=== PATIENT | male | born 1955 | race Two or more races ===

== ENCOUNTER 2016-12-24 16:04 | Emergency (ER) | payer OTHER ==
[~2016-12-24] VITALS: Ht 172.7 cm; Wt 74.8 kg
--- NOTE | 2016-12-24 16:08 | NUR ---
Dr Aguirre at the bedside for eval and exam.
[2016-12-24] MEDS ORDERED: LORA1TAB PO (16:40)
[2016-12-24] MEDS ORDERED: MAGN400O6 PO (16:40)
[2016-12-24] MEDS ORDERED: QUET25TA PO ×2 (16:40)
[2016-12-24] MEDS ORDERED: DEXT-150 PO (16:40)
[2016-12-24] MEDS ORDERED: METF500T4 PO (16:40)
[2016-12-24] MEDS ORDERED: BLOO-360 IN (16:40)
[2016-12-24] MEDS ORDERED: GLIM2TAB2 PO (16:40)
[2016-12-24] MEDS ORDERED: MAG30ORA PO (16:40)
[2016-12-24] MEDS ORDERED: CYAN100T3 PO (16:40)
[2016-12-24] MEDS ORDERED: INSU100V28 SQ (16:40)
[2016-12-24] MEDS ORDERED: BENA10TA2 PO (16:40)
[2016-12-24] MEDS ORDERED: CLOP75TA15 PO (16:40)
[2016-12-24] MEDS ORDERED: TEMA15CA PO (16:40)
[2016-12-24] MEDS ORDERED: ATOR20TA PO (16:40)
[2016-12-24] MEDS ORDERED: THIA100T13 PO (16:40)
[2016-12-24] MEDS ORDERED: ACET325T53 PO (16:40)
[2016-12-24] MEDS ORDERED: GLUC1KIT IJ (16:40)
[2016-12-24] MEDS ORDERED: CHOL400C8 PO (16:40)
[2016-12-24] MEDS ORDERED: DOCU100C36 PO (16:40)
--- NOTE | 2016-12-24 16:41 | NUR ---
pt back from ct.
--- NOTE | 2016-12-24 17:19 | NUR ---
dinner provided, pt has good appetite and ate 100% of tray. pt needed assisstance w/ feeding.
--- NOTE | 2016-12-24 17:52 | NUR ---
Called [facility] for Pt's transfer, ETA 1 hour. notified [facility] of pt's returning to facility, ans spoke to ADARSH.
--- NOTE | 2016-12-24 19:03 | NUR ---
Assisst pt to bathroom. incontinance care given. pt is sitting in chair, NAD noted. Awaiting transfer back [facility].
--- NOTE | 2016-12-24 19:21 | NUR ---
SBAR report given to Jose Alfredo.
--- NOTE | 2016-12-24 19:48 | NUR ---
Patient discharged to home via [facility] in stable conditon. Written and verbal after care instructions given. Patient verbalizes understanding of instructions.
[2016-12-24 19:49] VITALS: BP 134/82
== END 2016-12-24 19:50 | disposition home or self-care (01) ==
LOC: ER 16:04
DX: F03.90 Unspecified dementia, unspecified severity, without behavioral disturbance, psychotic disturbance, mood disturbance, and anxiety (principal); W18.30XA Fall on same level, unspecified, initial encounter; Y93.89 Activity, other specified; Y92.9 Unspecified place or not applicable; Y99.9 Unspecified external cause status
CPT/HCPCS: 70450; 71010; 72125; 72170; 82962; 99284; A4663